=== PATIENT | female | born 2000 | race Caucasian/White ===

== ENCOUNTER 2021-06-06 07:37 | Inpatient (IN) | payer OTHER ==
[~2021-06-06] VITALS: Ht 162.6 cm; Wt 87.8 kg
[2021-06-06] VITALS (34 sets, daily range): BP systolic 93–141; BP diastolic 50–84
[2021-06-06] MEDS ORDERED: PRENTAB9 PO (07:52)
[2021-06-06] MEDS ORDERED: HOME MED LIST COMPLETE! XX SCH (07:55)
[2021-06-06 08:43] LABS: HEMATOCRIT 34.2 % (36.0-47.0); MEAN CORPUSCULAR HEMOGLOBIN 28.3 pg (27.0-33.0); MEAN CORPUSCULAR HGB CONC 32.2 g/dl (32.0-36.5); MEAN CORPUSCULAR VOLUME 87.9 fl (80.0-96.0); PLATELET COUNT, AUTOMATED 167 10^3/uL (150-450); RED BLOOD COUNT 3.89 10^6/uL (4.00-5.40); WHITE BLOOD COUNT 11.3 10^3/uL (4.0-10.0)
[2021-06-06] MEDS ORDERED: OXYTOCIN INJ 10 UNITS/ML VIAL (J2590) IV PRN (09:00)
[2021-06-06] MEDS ORDERED: LACTATED RINGER'S 1000 ML IV ONE (09:00)
[2021-06-06] MEDS ORDERED: miSOPROStol 50MCG 1/2 TABLET PO ONE (09:00)
[2021-06-06] MEDS ORDERED: METHYLERGONOVINE MALEATE 0.2 MG/ML VIAL (J2210) IM PRN (09:00)
[2021-06-06] MEDS ORDERED: OXYTOCIN DRIP 30 UNITS in IV 1 EA IV PRN ×4 (09:00)
[2021-06-06] MEDS ORDERED: TRANEXAMIC ACID INJection 1,000 MG in NS 100 ML IV PRN (09:00)
[2021-06-06] MEDS ORDERED: LR 1,000 ML IV SCH (15:00)
[2021-06-06] MEDS ORDERED: OXYTOCIN DRIP 30 UNITS in IV 1 EA IV SCH (15:00)
[2021-06-06] MEDS: LR 1,000 ML IV SCH ×2 (15:29→23:36)
[2021-06-06] MEDS: PENICILLIN G POTASSIUM IV 5 MU in D5W MINI-BAG PLUS 100 ML IV SCH ×3 (15:29→23:35)
[2021-06-06] MEDS ORDERED: FENTANYL 2MCG/ML ROPIVACAINE 0.2% IN 0.9% NACL 100ML IVBAG As Ordered ONE (19:37)
[2021-06-06] MEDS ORDERED: CALCIUM CARBONATE 500 MG CHEW U/D PO ONE (19:40)
[2021-06-06] MEDS ORDERED: ePHEDrine SULFATE 25 MG/5 ML(5MG/ML) SYRINGE IV PRN (21:30)
[2021-06-06] MEDS ORDERED: FENTANYL/ROPIVACAINE/NACL BAG 100 ML EPIDURAL SCH (21:30)
[2021-06-06] MEDS ORDERED: diphenhydrAMINE 50MG/ML VIAL (J1200) IV PRN (21:30)
[2021-06-06] MEDS ORDERED: REFRIGERATOR IV KEYS XX PRN (21:30)
[2021-06-06] MEDS ORDERED: ONDANSETRON 4MG/2ML VIAL IV PRN (21:30)
[2021-06-06] MEDS ORDERED: EPIDURAL COMMENT XX SCH (21:30)
[2021-06-06] MEDS ORDERED: EPIDURAL/PCA KEYS XX PRN (21:30)
[2021-06-06] MEDS ORDERED: NALOXONE INJ 0.4MG/1ML VIAL (J2310 PER 1MG) IV PRN (21:30)
[2021-06-06] MEDS ORDERED: LACTATED RINGER'S 1000 ML IV PRN (21:30)
[2021-06-07] VITALS (11 sets, daily range): BP systolic 107–144; BP diastolic 55–91
[2021-06-07] MEDS: LR 1,000 ML IV SCH (00:26)
[2021-06-07 02:48] LABS: CORD GAS ABE V -4.9; CORD GAS HCO3 V 21.7 MEQ/L; CORD GAS O2 SAT V 53.8 %; CORD GAS PCO2 V 45.9 mmHg; CORD GAS PH V 7.293 UNITS; CORD GAS PO2 V 24.7 mmHg; CORD GAS SBC V 19.4 MEQ/L; CORD GAS TCO2 V 23.1 MEQ/L
[2021-06-07 02:50] LABS: CORD GAS ABE A -5.9; CORD GAS HCO3 A 23.7 MEQ/L; CORD GAS O2 SAT A 29.8 %; CORD GAS PCO2 A 64.9 mmHg; CORD GAS PH A 7.181 UNITS; CORD GAS PO2 A 18.2 mmHg; CORD GAS SBC A 18.1 MEQ/L; CORD GAS TCO2 A 25.7 MEQ/L
[2021-06-07] MEDS ORDERED: OXYTOCIN DRIP 30 UNITS in IV 1 EA IV SCH (03:15)
[2021-06-07] MEDS ORDERED: OXYTOCIN DRIP 30 UNITS in IV 1 EA IV ONE (03:15)
[2021-06-07] MEDS ORDERED: OXYTOCIN INJ 10 UNITS/ML VIAL (J2590) IV ONE (03:15)
[2021-06-07] MEDS ORDERED: METHYLERGONOVINE MALEATE 0.2 MG/ML VIAL (J2210) IM PRN (03:15)
[2021-06-07] MEDS ORDERED: ACETAMINOPHEN TAB 650MG DOSE (2X325MG) PO PRN (03:15)
[2021-06-07] MEDS ORDERED: ANUSOL HC CREAM 30GM TOP PRN (03:15)
[2021-06-07] MEDS ORDERED: IBUPROFEN 600MG TAB PO PRN (03:15)
[2021-06-07] MEDS ORDERED: RHOGAM 300 MCG (1500 IU) INJ (J2790) IM SCH (03:15)
[2021-06-07] MEDS ORDERED: METHYLERGONOVINE MALEATE 0.2 MG TAB PO PRN (03:15)
[2021-06-07] MEDS ORDERED: DOCUSATE SODIUM 100MG CAPSULE PO PRN (03:15)
[2021-06-07] MEDS ORDERED: ACETAMINOPHEN 500 MG TAB PO PRN (03:15)
[2021-06-07] MEDS ORDERED: DIBUCAINE 1% OINTMENT 30GM TOP PRN (03:15)
[2021-06-07] MEDS ORDERED: MEASLES,MUMPS,RUBELLA VACCINE INJ (MMR-II) (90707) SC SCH (03:15)
[2021-06-07] MEDS ORDERED: MOM 30ML SUSPENSION UDC PO PRN (03:15)
[2021-06-07] MEDS: PRENATAL VITAMINS CHEWABLE TABLET PO SCH (09:33)
[2021-06-08 06:03] VITALS: BP 114/59
[2021-06-08 06:57] LABS: HEMATOCRIT 33.3 % (36.0-47.0); HEMOGLOBIN 10.4 g/dl (12.0-15.5); MEAN CORPUSCULAR HEMOGLOBIN 28.3 pg (27.0-33.0); MEAN CORPUSCULAR HGB CONC 31.2 g/dl (32.0-36.5); MEAN CORPUSCULAR VOLUME 90.5 fl (80.0-96.0); PLATELET COUNT, AUTOMATED 157 10^3/uL (150-450); RED BLOOD COUNT 3.68 10^6/uL (4.00-5.40); WHITE BLOOD COUNT 12.4 10^3/uL (4.0-10.0)
[2021-06-08] MEDS: PRENATAL VITAMINS CHEWABLE TABLET PO SCH (09:44)
== END 2021-06-08 15:43 | disposition home or self-care (01) | DRG 807 ==
LOC: M LDI 07:37 → M OBS 06-07 04:57
PROVIDERS: ADMIT Obstetrics & Gynecology; ATTEND Obstetrics & Gynecology
PROC: 3E033VJ Introduction of Other Hormone into Peripheral Vein, Percutaneous Approach (ICD-10-PCS; 2021-06-06)
PROC: 10E0XZZ Delivery of Products of Conception, External Approach (ICD-10-PCS; principal; 2021-06-07)
PROC: 0HQ9XZZ Repair Perineum Skin, External Approach (ICD-10-PCS; 2021-06-07)
DX: O48.0 Post-term pregnancy (principal); Z37.0 Single live birth; Z3A.41 41 weeks gestation of pregnancy; O69.1XX0 Labor and delivery complicated by cord around neck, with compression, not applicable or unspecified; O77.0 Labor and delivery complicated by meconium in amniotic fluid; O70.0 First degree perineal laceration during delivery